=== PATIENT | female | born 1955 | race Caucasian/White ===

== ENCOUNTER 2017-10-07 10:28 | Emergency (ER) | payer OTHER ==
[2017-10-07 10:47] VITALS: BP 124/81; PULSE 75; TEMP 97; BMI 33.1
--- NOTE | 2017-10-07 11:10 | PDOC ---
History of Present Illness - General Chief Complaint: RX Refill Stated Complaint: RX REFILL Time Seen by Provider: 10/07/17 11:06 History Source: Patient, Care Provider Exam Limitations: No Limitations - History of Present Illness Initial Comments: 10/07/17 11:26 This is a 62-year-old with past medical history of developmental delay, GERD, hypothyroidism, anxiety, depression who was brought to the emergency department by care home staff status post finishing up prescription of Klonopin and needing a refill. The care home employee states that the patient has an appointment with her primary doctor next week for refill of medication but requires additional 5 days until he can make that appointment. Patient denies any complaints at present and is excited about springtime with her family over the holiday in [place]. Past History - Past Medical History Allergies/Adverse Reactions: Allergies Allergy/AdvReac Type Severity Reaction Status Date / Time No Known Allergies Allergy Verified 10/07/17 10:47 Home Medications: Ambulatory Orders clonazePAM [Klonopin -] 0.5 mg PO BID #14 tablet MDD 2 10/07/17 COPD: No HTN: Yes Seizures: Yes (EPILEPSY) Thyroid Disease: Yes - Suicide/Smoking/Psychosocial Hx Smoking Status: No Smoking History: Never smoked Have you smoked in the past 12 months: No Number of Cigarettes Smoked Daily: 0 Hx Alcohol Use: No Drug/Substance Use Hx: No Substance Use Type: None Hx Substance Use Treatment: No Review of Systems - Review of Systems Able to Perform 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 No: Apparent Distress HEENT: positive: Normal ENT Inspection Neck: positive: Trachea midline, Supple Respiratory/Chest: positive: Lungs Clear, Normal Breath Sounds. negative: Respiratory Distress, Accessory Muscle Use Cardiovascular: positive: Regular Rhythm, Regular Rate Gastrointestinal/Abdominal: positive: Normal Bowel Sounds, Soft. negative: Tender Musculoskeletal: positive: Normal Inspection. negative: CVA Tenderness Extremity: positive: Normal Inspection Integumentary: positive: Normal Color, Dry, Warm Neurologic: positive: Alert, Normal Response Medical Decision Making - Medical Decision Making 10/07/17 11:25 A/P: 61-year-old woman with history of anxiety, GERD, hypothyroidism, developed mental delay who was brought to the emergency department for refill of her Klonopin Physical exam is within normal limits. I stop as below: Patient Name: Kayleigh Tracey Date: 1955 Address: [address] [place] [address] Sex: Female Rx Written Rx Dispensed Drug Quantity Days Supply Prescriber Name 09/05/2017 09/06/2017 clonazepam 0.5 mg tablet 60 30 Jung, Tamara G 08/01/2017 08/07/2017 clonazepam 0.5 mg tablet 60 30 Jung, Tamara G 07/04/2017 07/07/2017 clonazepam 0.5 mg tablet 60 30 Jung, Tamara G 06/08/2017 06/09/2017 clonazepam 0.5 mg tablet 60 30 Jung, Tamara G 05/01/2017 05/04/2017 clonazepam 0.5 mg tablet 60 30 Jung, Tamara G 04/04/2017 04/06/2017 clonazepam 0.5 mg tablet 60 30 Jung, Tamara G 03/28/2017 03/29/2017 clonazepam 0.5 mg tablet 16 8 Jung, Tamara G 02/22/2017 02/23/2017 clonazepam 0.5 mg tablet 60 30 Jung, Tamara G 01/26/2017 01/27/2017 clonazepam 0.5 mg tablet 60 30 Jung, Tamara G 12/27/2016 12/28/2016 clonazepam 0.5 mg tablet 60 30 Jung, Tamara G 11/15/2016 11/29/2016 clonazepam 0.5 mg tablet 60 30 Jung, Tamara G 11/01/2016 11/02/2016 clonazepam 0.5 mg tablet 60 30 Jung, Tamara G I'll give the patient's seven-day supply of Klonopin with instructions to follow -up with her primary doctors previously scheduled. *DC/Admit/Observation/Transfer Diagnosis at time of Disposition: Medication refill - Discharge Dispostion Disposition: [facility] Condition at time of disposition: Stable Admit: No - Prescriptions Prescriptions: clonazePAM [Klonopin -] 0.5 mg PO BID #14 tablet MDD 2 - Referrals Referrals: Alicia Mehta [Primary Care Provider] - - Patient Instructions - Post Discharge Activity
== END 2017-10-07 11:25 | disposition home or self-care (01) ==
LOC: JERFT 10:28
DX: F41.9 Anxiety disorder, unspecified (principal); I10 Essential (primary) hypertension; E03.9 Hypothyroidism, unspecified; G40.909 Epilepsy, unspecified, not intractable, without status epilepticus; K21.9 Gastro-esophageal reflux disease without esophagitis; R62.59 Other lack of expected normal physiological development in childhood
CPT/HCPCS: 99281-25

== ENCOUNTER 2022-03-30 13:45 | Inpatient (IN) | payer OTHER ==
[2022-03-30 14:23] VITALS: RESP 18
[2022-03-30] MEDS ORDERED: clonazePAM 0.5 MG TABLET PO ONE (17:00)
[2022-03-30] MEDS ORDERED: ASPIRIN 81 MG CHEWABLE TABLETS PO ONE (17:10)
[2022-03-30 17:57] LABS: BASO % 0.9 % (0-2.0); EOS % 2.2 % (0-4.5); HEMOGLOBIN 11.1 GM/dL (10.7-15.3); LYMPH % 40.1 % (8-40); MCH 29.2 pg (25.7-33.7); MCHC 33.6 g/dl (32.0-36.0); MEAN CELL VOLUME 86.8 fl (80-96); MEAN PLT VOLUME 8.6 fl (7.5-11.1); MONO % 13.9 % (3.8-10.2); NEUT % 42.9 % (42.8-82.8); PLATELET COUNT 236 10^3/uL (134-434); RDW 14.4 % (11.6-15.6); WHITE BLOOD COUNT 3.4 K/mm3 (4.0-10.0)
[2022-03-30 18:04] LABS: INR 1.06 (0.83-1.09); PROTHROMBIN TIME (PATIENT) 12.2 SEC (9.7-13.0)
[2022-03-30 18:07] LABS: ACTIVATED PTT 32.5 SECONDS (25.2-36.5)
[2022-03-30 18:18] LABS: BLOOD UREA NITROGEN 12.2 mg/dL (7-18); CALCIUM 8.7 mg/dL (8.5-10.1)
[2022-03-30 18:19] LABS: ALBUMIN 3.7 g/dl (3.4-5.0)
[2022-03-30 18:22] LABS: CREATININE 0.7 mg/dL (0.55-1.3)
[2022-03-30 18:23] LABS: BILIRUBIN,TOTAL 0.3 mg/dL (0.2-1); TOT PROT 6.9 g/dl (6.4-8.2)
[2022-03-30] MEDS ORDERED: clonazePAM 0.5 MG TABLET ONE (18:49)
[2022-03-30] MEDS ORDERED: ASPIRIN 81 MG CHEWABLE TABLETS ONE (18:49)
[2022-03-31] MEDS ORDERED: PATIENT'S OWN MEDICATION (NON-FORMULARY) (Azelastine Hcl [Azelastine Hcl] 137 MCG/0.137 ML NS SCH (00:45)
[2022-03-31 05:52] VITALS: BMI 30.2
[2022-03-31] MEDS: OXcarbazepine 300 MG TABLET (UD) PO SCH ×2 (06:20→14:41)
[2022-03-31] MEDS ORDERED: LEVOTHYROXINE NA 50 MCG TABLET (FP) PO SCH (07:30)
[2022-03-31 08:21] LABS: URINE APPEARANCE CLEAR; URINE BILIRUBIN NEGATIVE (NEGATIVE); URINE COLOR YELLOW; URINE GLUCOSE (UA) NEGATIVE (NEGATIVE); URINE KETONE NEGATIVE (NEGATIVE); URINE LEUK ESTERASE NEGATIVE (NEGATIVE); URINE NITRITE NEGATIVE (NEGATIVE); URINE PROTEIN NEGATIVE (NEGATIVE); URINE UROBILINOGEN 0.2 mg/dL (0.2-1.0)
[2022-03-31 08:26] LABS: BASO % 0.8 % (0-2.0); EOS % 1.2 % (0-4.5); HEMATOCRIT 37.4 % (32.4-45.2); HEMOGLOBIN 12.4 GM/dL (10.7-15.3); LYMPH % 27.8 % (8-40); MCH 28.4 pg (25.7-33.7); MCHC 33.1 g/dl (32.0-36.0); MEAN CELL VOLUME 85.9 fl (80-96); MEAN PLT VOLUME 8.5 fl (7.5-11.1); MONO % 16.4 % (3.8-10.2); NEUT % 53.8 % (42.8-82.8); PLATELET COUNT 274 10^3/uL (134-434); RBC 4.36 M/mm3 (3.60-5.2); RDW 14.6 % (11.6-15.6); WHITE BLOOD COUNT 2.9 K/mm3 (4.0-10.0)
[2022-03-31 08:59] LABS: BLOOD UREA NITROGEN 10.6 mg/dL (7-18); CALCIUM 9.3 mg/dL (8.5-10.1)
[2022-03-31 09:00] LABS: ALBUMIN 4.1 g/dl (3.4-5.0); MAGNESIUM 2.4 mg/dL (1.8-2.4)
[2022-03-31 09:02] LABS: CREATININE 0.8 mg/dL (0.55-1.3); PHOSPHOROUS 3.6 mg/dL (2.5-4.9)
[2022-03-31 09:04] LABS: BILIRUBIN,TOTAL 0.4 mg/dL (0.2-1); TOT PROT 7.7 g/dl (6.4-8.2)
[2022-03-31 09:12] VITALS: PULSE 77
[2022-03-31] MEDS ORDERED: LORATADINE 10 MG TABLET PO SCH (10:00)
[2022-03-31] MEDS ORDERED: BRIMONIDINE TARTRATE 0.2% OPHTHALMIC 5 ML BOTTLE OU SCH (10:00)
[2022-03-31] MEDS ORDERED: levETIRAcetam XR 750 MG TAB PO SCH (10:00)
[2022-03-31] MEDS ORDERED: PATIENT'S OWN MEDICATION (NON-FORMULARY) (Brimonidine Tartrate/Timolol [Combigan 0.2%-0.5% OU SCH (10:00)
[2022-03-31] MEDS ORDERED: LATANOPROST 0.005% OPHTH SOLN 2.5ML BOTTLE OU SCH (10:00)
[2022-03-31] MEDS ORDERED: ESCITALOPRAM OXALATE 20 MG TABLET PO SCH (10:00)
[2022-03-31] MEDS ORDERED: PATIENT'S OWN MEDICATION (NON-FORMULARY) (Azelastine Hcl [Azelastine Hcl] 137 MCG) NS SCH (10:00)
[2022-03-31] MEDS ORDERED: QUEtiapine FUMARATE 50 MG TABLET PO SCH (10:00)
[2022-03-31] MEDS ORDERED: DORZOLAMIDE 2% HCL OPHTHALMIC SOLUTION 10 ML BOTTLE OU SCH (10:00)
[2022-03-31] MEDS ORDERED: clonazePAM 0.5 MG TABLET PO SCH (10:00)
[2022-03-31] MEDS ORDERED: ENOXAPARIN NA (PORCINE) 40 MG/0.4 ML DISP.SYRIN SQ SCH (10:00)
[2022-03-31] MEDS ORDERED: TIMOLOL 0.5% OPHTHALMIC SOL 5 ML BOTTLE OU SCH (10:00)
[2022-03-31] MEDS ORDERED: PANTOPRAZOLE 40 MG TABLET PO SCH (10:00)
[2022-03-31] MEDS ORDERED: levETIRAcetam 500 MG TABLET (FP) PO SCH (14:00)
[2022-03-31] MEDS ORDERED: lamoTRIgine 100 MG TABLET PO SCH (14:00)
[2022-03-31] MEDS ORDERED: levETIRAcetam 250 MG TABLET PO SCH ×2 (14:00)
[2022-03-31 15:36] VITALS: BP 142/81; TEMP 98.3
[2022-03-31] MEDS ORDERED: ATORVASTATIN CA 80 MG TABLET (FP) PO SCH (22:00)
== END 2022-03-31 17:56 | DRG 92 ==
LOC: JER 13:45 → JERBED 19:29 → J4W 22:54
PROVIDERS: ADMIT Internal Medicine; ATTEND Internal Medicine
DX: R29.810 Facial weakness (principal); E87.1 Hypo-osmolality and hyponatremia; F84.9 Pervasive developmental disorder, unspecified; I16.0 Hypertensive urgency; G40.909 Epilepsy, unspecified, not intractable, without status epilepticus; E03.9 Hypothyroidism, unspecified; K21.9 Gastro-esophageal reflux disease without esophagitis; G47.30 Sleep apnea, unspecified; F41.8 Other specified anxiety disorders; R77.8 Other specified abnormalities of plasma proteins; R62.50 Unspecified lack of expected normal physiological development in childhood; F81.9 Developmental disorder of scholastic skills, unspecified; F80.9 Developmental disorder of speech and language, unspecified
CPT/HCPCS: 0241U-QW; 36415; 70450-TC; 70551-TC; 80053; 81003; 82570; 82962; 83735; 83935; 84100; 84484; 85025; 85610; 85730; 87086; 93005; 93010; 97116-GP; 97161-GP; 99285-25